=== PATIENT | female | born 1955 | race Caucasian/White ===

== ENCOUNTER 2024-07-28 07:59 | Day surgery (SDC) | payer MEDICARE, BC ==
[~2024-07-28] VITALS: Ht 165.1 cm; Wt 61.7 kg
[~2024-07-28 07:59] MED LIST: BIMA01SOL; COLA100C5 PO; CURC500C PO; CVS1CAP2 PO; FLUO25OPD OD; GLUC1TAB PO; KP F1200 PO; LEVO88TA3 PO; MAGN250T7 PO; MIRA3350 PO; MULTTAB61 PO; OYST500C PO; ROSU5TAB49 PO; VITA500C24 PO; ZINC100T3 PO
[2024-07-28] MEDS ORDERED: propofoL 200 MG/20 ML VIAL As Ordered ONE (09:03)
[2024-07-28] MEDS ORDERED: LIDOCAINE 2% 100MG/5ML SDV (FOR ANES.) As Ordered ONE (09:19)
[2024-07-28 09:31] VITALS: TEMP 96.9
[2024-07-28 09:54] VITALS: BP 141/65; O2SAT 100
== END 2024-07-28 10:07 | disposition home or self-care (01) ==
LOC: M OPP 07:59
PROVIDERS: ATTEND Internal Medicine Gastroenterology
DX: Z12.11 Encounter for screening for malignant neoplasm of colon (principal); R19.5 Other fecal abnormalities; K64.0 First degree hemorrhoids; Z88.1 Allergy status to other antibiotic agents; Z79.899 Other long term (current) drug therapy